=== PATIENT | male | born 1985 | race Caucasian/White ===

== ENCOUNTER 2017-01-10 21:01 | Emergency (ER) | payer SELFPAY ==
[~2017-01-10 21:01] MED LIST: ALBUTEROL17 G1 INH; BACTRIM DS TABL1 TAB PO; CLEOCIN PO; CODEINE 10 MG/118 ML PO; DICLOFENAC EC; DICLOFENAC PO; DOXYCYCLINE HY100 M3 PO; DOXYCYCLINE PO; ELIMITE60 GM TOP; ERYC250 MG PO; ERYTHROMYCIN250 M1 PO; KETOPROFEN PO; MEDROL DOSEPAK4 MG PO; MEDROL PO; NABUMETONE PO; NO MEDICATIONS; NORFLEX100 MG PO; PROMETHAZINE V120 ML PO; ROBITUSSIN A-C-S1 ML PO; SKELAXIN PO; ULTRAM PO; VICODIN 5/1 TAB 5/50 PO; VICODIN 5/500 T1 TAB PO; VOLTAREN75 MG PO; Z PAK; ZITHROMAX PO
== END 2017-01-10 22:05 | disposition home or self-care (01) ==
LOC: SED 21:01
DX: T40.1X1A Poisoning by heroin, accidental (unintentional), initial encounter (principal); F17.200 Nicotine dependence, unspecified, uncomplicated; Z88.1 Allergy status to other antibiotic agents; Z88.8 Allergy status to other drugs, medicaments and biological substances
CPT/HCPCS: 99282

== ENCOUNTER 2017-03-03 15:00 | Emergency (ER) | payer SELFPAY | END 2017-03-03 17:01 | disposition LSLMPD | LOC: SED 15:00 | DX: F11.10 Opioid abuse, uncomplicated (principal); F17.200 Nicotine dependence, unspecified, uncomplicated; Z88.0 Allergy status to penicillin | CPT/HCPCS: 99282 ==